=== PATIENT | male | born 1955 | race Caucasian/White ===

== ENCOUNTER 2018-09-22 15:18 | Emergency (ER) | payer MEDICARE, MEDICAID ==
[~2018-09-22] VITALS: Ht 177.8 cm; Wt 104.5 kg
[2018-09-22 16:21] LABS: BASOPHILS % (AUTO) 1.2 % (0.0-2.0); EOSINOPHILS % (AUTO) 0.5 % (1.0-6.0); HEMATOCRIT 33.9 % (41-53); LYMPHOCYTES # (AUTO) 2.9 K/uL (1.0-4.8); LYMPHOCYTES % (AUTO) 44.6 % (22.0-44.0); MEAN CORPUSCULAR HEMOGLOBIN 27.1 pg (26.0-34.0); MEAN CORPUSCULAR HGB CONC 32.3 G/dL (31.0-37.0); MEAN CORPUSCULAR VOLUME 84 fL (80-100); MONOCYTES # (AUTO) 0.6 K/uL (0.1-1.0); MONOCYTES % (AUTO) 8.4 % (2.0-9.0); NEUTROPHILS % (AUTO) 45.3 % (40.0-70.0); PLATELET COUNT (AUTO) 283 K/uL (150-450); RED BLOOD CELL COUNT(AUTO) 4.05 MIL/uL (4.50-5.90); RED CELL DISTRIBUTION WIDTH 16.8 % (11.5-14.5)
[2018-09-22 16:34] LABS: ANION GAP 15 mmol/L (8-16); CALCIUM, TOTAL 8.8 mg/dL (8.8-10.5); CARBON DIOXIDE 23 mmol/L (22-29); CHLORIDE 103 mmol/L (98-107); CREATININE 1.14 mg/dL (0.60-1.30); GLOMERULAR FILTR. RATE CALC > 60 mL/min (>60); GLUCOSE,RANDOM 199 mg/dL (70-110); POTASSIUM 3.9 mmol/L (3.5-5.1); SODIUM SERUM 141 mmol/L (136-145); UREA NITROGEN, BLOOD 21 mg/dL (7-18)
[2018-09-22 16:40] LABS: ALANINE AMINOTRANSFERASE 17 U/L (12-78); ALBUMIN 3.3 g/dL (3.4-5.0); ALKALINE PHOSPHATASE 87 U/L (46-116); ASPARTATE AMINOTRANSFERASE 16 U/L (15-37); BILIRUBIN,TOTAL 0.3 mg/dL (0.1-1.0); TOTAL PROTEIN, SERUM 6.9 g/dL (6.4-8.2)
[2018-09-22 17:11] VITALS: BP 119/90
== END 2018-09-22 22:06 | disposition home or self-care (01) ==
LOC: EMS 15:19
DX: F10.129 Alcohol abuse with intoxication, unspecified (principal); Y90.8 Blood alcohol level of 240 mg/100 ml or more
CPT/HCPCS: 36415; 80053; 85025; 99283; G0480

== ENCOUNTER 2018-09-23 00:17 | Inpatient (IN) | payer MEDICARE, MEDICAID ==
[~2018-09-23] VITALS: Ht 177.8 cm; Wt 97.0 kg
[2018-09-23] MEDS ORDERED: PB/HYOSCY/ATR/SCOP/LIDO/MAALOX 55 ML BOTTLE PO ONE (05:00)
[2018-09-23] MEDS ORDERED: LORazepam 2 MG TABLET PO ONE (06:00)
[2018-09-23] MEDS ORDERED: MAGNESIUM SULFATE 2 GM, MVI, ADULT NO.1 WITH VIT K 10 ML, THIAMINE HCL 100 MG, FOLIC AC... IV ONE ×10 (06:00)
[2018-09-23] MEDS ORDERED: LORazepam 2 MG/ML VIAL IVP ONE (06:00)
[2018-09-23] MEDS ORDERED: ChlordiazePOXIDE HCL 25 MG CAPSULE PO ONE (07:30)
[2018-09-23 08:08] LABS: AMPHET/METH SCREEN,URINE NEGATIVE (NEGATIVE); BARBITURATE SCREEN, URINE NEGATIVE (NEGATIVE); BENZODIAZEPINES SCREEN,URINE NEGATIVE (NEGATIVE); CANNABINOID SCREEN,URINE NEGATIVE (NEGATIVE); COCAINE SCREEN,URINE NEGATIVE (NEGATIVE); METHADONE SCREEN, URINE NEGATIVE (NEGATIVE); OPIATE SCREEN,URINE NEGATIVE (NEGATIVE)
[2018-09-23 08:17] LABS: PHENCYCLIDINE SCREEN,URINE NEGATIVE (NEGATIVE)
[2018-09-23] MEDS ORDERED: ONDANSETRON HCL 4 MG/2 ML VIAL IVP PRN ×2 (08:45→23:15)
[2018-09-23] MEDS ORDERED: ACETAMINOPHEN 325 MG TABLET PO PRN ×2 (08:45→23:15)
[2018-09-23] MEDS ORDERED: 0.9% SODIUM CHLORIDE 10 ML SYRINGE IVP PRN (08:45)
[2018-09-23] MEDS ORDERED: MAG HYDROX/AL HYDROX/SIMETH 30 ML SUSP UDCUP PO ONE (09:30)
[2018-09-23] MEDS ORDERED: METOPROLOL TARTRATE 25 MG TABLET PO SCH (10:30)
[2018-09-23 11:28] VITALS: BP 158/101
[2018-09-23] MEDS ORDERED: LORazepam 2 MG/ML VIAL IVP PRN ×2 (11:30→23:15)
[2018-09-23] MEDS ORDERED: HEPARIN SODIUM 25000 UNITS/D5W 250 ML IV PRN (13:04)
[2018-09-23] MEDS ORDERED: HEPARIN SODIUM,PORCINE 5,000 UNITS/ML VIAL IVP ONE (13:15)
[2018-09-23] MEDS ORDERED: HEPARIN SODIUM,PORCINE 5,000 UNITS/ML VIAL IVP PRN ×2 (13:15)
[2018-09-23] MEDS: ATORVASTATIN CALCIUM 40 MG TABLET PO SCH (13:27)
[2018-09-23] MEDS: ASPIRIN 325 MG TABLET PO SCH (13:28)
[2018-09-23 13:29] LABS: BASOPHILS % (AUTO) 1.3 % (0.0-2.0); EOSINOPHILS % (AUTO) 0.1 % (1.0-6.0); HEMATOCRIT 32.7 % (41-53); HEMOGLOBIN 10.7 g/dL (13.5-17.5); LYMPHOCYTES # (AUTO) 1.7 K/uL (1.0-4.8); LYMPHOCYTES % (AUTO) 23.2 % (22.0-44.0); MEAN CORPUSCULAR HEMOGLOBIN 27.1 pg (26.0-34.0); MEAN CORPUSCULAR HGB CONC 32.6 G/dL (31.0-37.0); MEAN CORPUSCULAR VOLUME 83 fL (80-100); MONOCYTES # (AUTO) 0.8 K/uL (0.1-1.0); MONOCYTES % (AUTO) 10.8 % (2.0-9.0); NEUTROPHILS # (AUTO) 4.6 K/uL (1.8-7.7); NEUTROPHILS % (AUTO) 64.6 % (40.0-70.0); PLATELET COUNT (AUTO) 260 K/uL (150-450); RED BLOOD CELL COUNT(AUTO) 3.94 MIL/uL (4.50-5.90)
[2018-09-23 13:41] LABS: PROTHROMBIN TIME 10.6 SEC (9.4-11.6)
[2018-09-23 16:10] VITALS: BP 147/96
[2018-09-23 19:21] VITALS: BP_SYST 114; BP_SYST 14; BP_SYST 144; BP_DIAS 98
[2018-09-23] MEDS ORDERED: DEXTROSE 50%-WATER 25 GM/50 ML SYRINGE IVP PRN (22:45)
[2018-09-23] MEDS: METOPROLOL TARTRATE 25 MG TABLET PO SCH (22:48)
[2018-09-23] MEDS: INSULIN LISPRO 100 UNITS/ML SQ PRN (22:48)
[2018-09-23] MEDS ORDERED: MAGNESIUM HYDROXIDE SUSPENSION 30 ML UDCUP PO PRN (23:15)
[2018-09-23] MEDS ORDERED: ALBUTEROL SULFATE 2.5 MG/0.5 ML NEB SOLUTION NEB PRN (23:15)
[2018-09-23] MEDS ORDERED: MORPHINE SULFATE 2 MG/ML SYRINGE IVP PRN (23:15)
[2018-09-23] MEDS ORDERED: ZOLPIDEM TARTRATE 5 MG TABLET PO PRN (23:15)
[2018-09-23] MEDS ORDERED: HYDROCODONE/ACETAMINOPHEN 5-325 MG TABLET PO PRN (23:15)
[2018-09-23] MEDS ORDERED: BISACODYL 10 MG RECTAL RECTAL SUPPOSITORY PR PRN (23:15)
[2018-09-23] MEDS ORDERED: IPRATROPIUM BROMIDE 0.5 MG/2.5 ML NEB SOLUTION NEB PRN (23:15)
[2018-09-23 23:40] VITALS: BP 159/97
[2018-09-24] MEDS ORDERED: HEPARIN SODIUM,PORCINE 5,000 UNITS/ML VIAL SQ SCH
[2018-09-24] MEDS: ChlordiazePOXIDE HCL 25 MG CAPSULE PO SCH ×2 (01:52→08:26)
[2018-09-24] MEDS: NITROGLYCERIN 2% (1 GM=INCH) PACKET TP SCH ×3 (01:52→13:57)
[2018-09-24 04:23] LABS: GLUCOMETER DEV NAME(LOC) 5N.2; GLUCOSE,POINT OF CARE 275 MG/DL (70-110)
[2018-09-24 04:23] LABS: GLUCOMETER DEV NAME(LOC) 5N.2; GLUCOSE,POINT OF CARE 251 MG/DL (70-110)
[2018-09-24 04:23] LABS: GLUCOMETER DEV NAME(LOC) 5N.2; GLUCOSE,POINT OF CARE 276 MG/DL (70-110)
[2018-09-24 05:58] VITALS: BP 128/89
[2018-09-24 06:17] LABS: EOSINOPHILS % (AUTO) 1.1 % (1.0-6.0); HEMATOCRIT 31.5 % (41-53); HEMOGLOBIN 10.3 g/dL (13.5-17.5); LYMPHOCYTES # (AUTO) 2.9 K/uL (1.0-4.8); LYMPHOCYTES % (AUTO) 42.4 % (22.0-44.0); MEAN CORPUSCULAR HEMOGLOBIN 27.3 pg (26.0-34.0); MEAN CORPUSCULAR HGB CONC 32.8 G/dL (31.0-37.0); MEAN CORPUSCULAR VOLUME 83 fL (80-100); MONOCYTES # (AUTO) 0.7 K/uL (0.1-1.0); MONOCYTES % (AUTO) 10.2 % (2.0-9.0); NEUTROPHILS # (AUTO) 3.1 K/uL (1.8-7.7); NEUTROPHILS % (AUTO) 45.3 % (40.0-70.0); PLATELET COUNT (AUTO) 233 K/uL (150-450); RED BLOOD CELL COUNT(AUTO) 3.79 MIL/uL (4.50-5.90); RED CELL DISTRIBUTION WIDTH 16.7 % (11.5-14.5)
[2018-09-24 06:36] LABS: ALANINE AMINOTRANSFERASE 16 U/L (12-78); ALBUMIN 2.9 g/dL (3.4-5.0); ALKALINE PHOSPHATASE 85 U/L (46-116); ANION GAP 7 mmol/L (8-16); ASPARTATE AMINOTRANSFERASE 20 U/L (15-37); BILIRUBIN,TOTAL 0.7 mg/dL (0.1-1.0); CALCIUM, TOTAL 8.6 mg/dL (8.8-10.5); CARBON DIOXIDE 27 mmol/L (22-29); CHLORIDE 98 mmol/L (98-107); CHOLESTEROL 207 mg/dL (131-200); GLOMERULAR FILTR. RATE CALC > 60 mL/min (>60); GLUCOSE,RANDOM 168 mg/dL (70-110); HDL CHOLESTEROL 68 mg/dL (40-60); LDL CHOL (CALC.) 122 mg/dL (0-130); POTASSIUM 4.1 mmol/L (3.5-5.1); SODIUM SERUM 132 mmol/L (136-145); TOTAL PROTEIN, SERUM 6.4 g/dL (6.4-8.2); TRIGLYCERIDES 83 mg/dL (15-150); UREA NITROGEN, BLOOD 18 mg/dL (7-18)
[2018-09-24 07:58] VITALS: BP 118/80
[2018-09-24] MEDS: ASPIRIN 325 MG TABLET PO SCH (08:24)
[2018-09-24] MEDS: ATORVASTATIN CALCIUM 40 MG TABLET PO SCH (08:26)
[2018-09-24] MEDS: METOPROLOL TARTRATE 25 MG TABLET PO SCH (08:28)
[2018-09-24] MEDS: INSULIN LISPRO 100 UNITS/ML SQ PRN ×2 (08:30→11:56)
[2018-09-24 08:34] LABS: GLUCOMETER DEV NAME(LOC) 5S.2; GLUCOSE,POINT OF CARE 184 MG/DL (70-110)
[2018-09-24 08:35] LABS: HEMOGLOBIN A1C 8.5 % (4.5-6.2)
[2018-09-24] MEDS ORDERED: THIAMINE HCL 100 MG TABLET PO SCH (09:00)
[2018-09-24] MEDS ORDERED: MULTIVITAMINS, THERAPEUTIC TABLET PO SCH (09:00)
[2018-09-24] MEDS ORDERED: DOCUSATE SODIUM 100 MG CAPSULE PO SCH (09:00)
[2018-09-24] MEDS ORDERED: ASPIRIN 81 MG CHEWABLE TABLET PO SCH (09:00)
[2018-09-24] MEDS ORDERED: PANTOPRAZOLE SODIUM 40 MG DR TABLET PO SCH (09:00)
[2018-09-24] MEDS ORDERED: FOLIC ACID 1 MG TABLET PO SCH (09:00)
[2018-09-24] MEDS ORDERED: LANSOPRAZOLE 30 MG SOLUBLE TABLET PO SCH (09:00)
[2018-09-24 11:32] LABS: APPEARANCE,URINE CLEAR (CLEAR); BILIRUBIN,URINE NEGATIVE (NEGATIVE); GLUCOSE, URINE (UA) 250 mg/dL (NEGATIVE); KETONES,URINE NEGATIVE (NEGATIVE); LEUKOCYTE ESTERASE ,URINE NEGATIVE (NEGATIVE); NITRATE,URINE NEGATIVE (NEGATIVE); OCCULT BLOOD,URINE NEGATIVE (NEGATIVE); PROTEIN,URINE NEGATIVE (NEGATIVE); UROBILINOGEN,URINE 0.2 mg/dL (<=1.0)
[2018-09-24 11:54] VITALS: BP 145/101
[2018-09-24 11:55] LABS: BACTERIA,URINE None Seen /HPF (None Seen); RBC,URINE None Seen /HPF (0-2); SQUAMOUS EPITHELIAL CELL,UR Few /LPF (None Seen); WBC,URINE None Seen /HPF (0-5)
[2018-09-24] MEDS ORDERED: ATOR40TA28 PO (15:22)
[2018-09-24] MEDS ORDERED: ASPI-989 PO (15:22)
[2018-09-24] MEDS ORDERED: METO25 PO (15:23)
[2018-09-24] MEDS ORDERED: DSS100 PO (15:23)
[2018-09-24] MEDS ORDERED: FOLI1 PO (15:23)
[2018-09-24] MEDS ORDERED: MULT-723 PO (15:25)
[2018-09-24] MEDS ORDERED: THIA100T67 PO (15:25)
[2018-09-24] MEDS ORDERED: ACET-2247 PO (15:26)
[2018-09-24] MEDS ORDERED: AUD NEB (15:27)
[2018-09-24] MEDS ORDERED: BISA10SU8 RC (15:30)
[2018-09-24] MEDS ORDERED: D5050I IV (15:36)
[2018-09-24] MEDS ORDERED: HYDR-4106 PO (15:40)
[2018-09-24] MEDS ORDERED: INSU100V SQ (15:43)
[2018-09-24] MEDS ORDERED: IPRA3AMP23 NEB (15:44)
[2018-09-24] MEDS ORDERED: MOM30 PO (15:46)
[2018-09-24] MEDS ORDERED: LORA10I IV (15:46)
[2018-09-24] MEDS ORDERED: MORP2CAR IV (15:52)
[2018-09-24] MEDS ORDERED: ONDA220I IV (15:53)
[2018-09-24] MEDS ORDERED: ZOLP5 PO (15:54)
[2018-09-24 16:09] VITALS: BP 124/83
[2018-09-25 11:58] LABS: GLUCOMETER DEV NAME(LOC) 5S.2; GLUCOSE,POINT OF CARE 252 MG/DL (70-110)
== END 2018-09-24 16:50 | disposition short-term general hospital (02) | DRG 897 ==
LOC: EMS 00:18 → 5N 10:04
PROVIDERS: ADMIT Internal Medicine; ATTEND Internal Medicine
DX: F10.10 Alcohol abuse, uncomplicated (principal); E11.8 Type 2 diabetes mellitus with unspecified complications; I10 Essential (primary) hypertension; K21.9 Gastro-esophageal reflux disease without esophagitis; W18.30XA Fall on same level, unspecified, initial encounter; Y93.89 Activity, other specified; Y92.89 Other specified places as the place of occurrence of the external cause; Y99.8 Other external cause status; Y90.4 Blood alcohol level of 80-99 mg/100 ml; Z82.49 Family history of ischemic heart disease and other diseases of the circulatory system; Z87.891 Personal history of nicotine dependence
CPT/HCPCS: 70450; 83036; 93005; 93306; 96374; G0378; G0480; J1644; J2060; J3411; J3475; J3490; J7030